=== PATIENT | female | born 1940 | race Caucasian/White ===

== ENCOUNTER 2022-05-19 20:01 | Emergency (ER) | payer OTHER ==
[~2022-05-19 20:01] MED LIST: ASPIRIN CHEWABL81 MG PO; BACTROBAN NASAL1 GM TOP; CALTRATE 600 +1 EACH PO; CELLCEPT500 MG PO; COREG 3.125M3.125 MG PO; CYCLOBENZAPRINE5 MG PO; ELLZIA PAK1 EACH TOP; ELOCON15 GM TOP; LOPRESSOR25 MG PO; MYCOPHENOL200 MG/1 M SL; MYLICON80 MG PO; PLAQUENIL200 MG PO; PREDNISONE 20MG20 MG PO; PRESERVISION A1 EACH PO; PROBIOTIC1 EAC2 PO; PROLIA60 MG/1 ML IJ; REFRESH CLASSI1 EACH EYEBOTH; TRIAMCIN-MOXI0.6 ML MT; WOMEN'S 50 PLU1 EACH PO; XARELTO20 MG PO
[2022-05-19] MEDS ORDERED: ULTRAM50 MG PO (21:53)
== END 2022-05-19 22:01 | disposition home or self-care (01) ==
LOC: FER 20:01
DX: S96.911A Strain of unspecified muscle and tendon at ankle and foot level, right foot, initial encounter (principal); I10 Essential (primary) hypertension; I48.91 Unspecified atrial fibrillation; Z79.899 Other long term (current) drug therapy; Z79.01 Long term (current) use of anticoagulants
CPT/HCPCS: 73610; 73630

== ENCOUNTER 2022-06-12 16:16 | Emergency (ER) | payer OTHER ==
[~2022-06-12 16:16] MED LIST changes: +ULTRAM50 MG PO
== END 2022-06-12 19:50 | disposition home or self-care (01) ==
LOC: FER 16:16
DX: S01.111A Laceration without foreign body of right eyelid and periocular area, initial encounter (principal); I10 Essential (primary) hypertension; I48.91 Unspecified atrial fibrillation; Z23 Encounter for immunization; Z79.01 Long term (current) use of anticoagulants; Z79.899 Other long term (current) drug therapy; W19.XXXA Unspecified fall, initial encounter; Y92.009 Unspecified place in unspecified non-institutional (private) residence as the place of occurrence of the external cause
CPT/HCPCS: 70450; 72125; 90471; 90715